=== PATIENT | female | born 1995 | race Caucasian/White ===

== ENCOUNTER 2016-12-18 17:18 | Emergency (ER) | payer OTHER ==
[2016-12-18] MEDS ORDERED: NORMAL SALINE 1,000 ML IV ONE ×2 (17:42→19:05)
[2016-12-18] MEDS ORDERED: ACETAMINOPHEN 500 MG TABLET PO ONE (17:42)
[2016-12-18 17:47] LABS: Urine Appearance Cloudy; Urine Color Yellow
[2016-12-18 17:48] LABS: Urine Bilirubin Negative (NEGATIVE); Urine Blood 150 /ul (NEGATIVE); Urine Ketone 5 mg/dL (NEGATIVE); Urine Protein 30 mg/dL (NEGATIVE); Urine Specific Gravity 1.015 SP.GR. (1.005-1.010); Urine Urobilinogen Normal (NORMAL)
[2016-12-18 17:49] LABS: Urine Bacteria 4+; Urine Nitrite Positive (NEGATIVE); Urine WBC >50 /hpf (0-5)
--- NOTE | 2016-12-18 17:49 | ERNOTE ---
ER Female HPI Date of Service: 12/18/16 Stated Complaint: URINARY PROBLEM Presenting Symptoms: other - Flank pain, foul smelling urine Time Seen by Provider: 12/18/16 17:36 Source: patient, RN notes reviewed Exam Limitations: no limitations Immunizations: IMMUNIZATION HX Immunizations Up to Date Yes History of Influenza Vaccine Yes Hx Pneumococcal Vaccination No Allergies/Adverse Reactions: Allergies codeine [Codeine] Allergy (Mild, Verified 12/18/16 17:33) Sulfa (Sulfonamide Antibiotics) [Sulfa(Sulfonamide Antibiotics)] Allergy (Mild, Verified 12/18/16 17:33) azithromycin [From Zithromax] Allergy (Unknown, Verified 12/18/16 17:33) Home Medications: HOME MEDICATIONS Ciprofloxacin HCl [Cipro] 500 mg PO BID #20 tablet 12/18/16 [Last Taken Unknown] Pain Score #1 Pain Score: 10 - History of Present Illness Narrative: 21 y/o female to ED by private vehicle for left flank pain and foul smelling urine. This began yesterday. She took ibuprofen last evening but has not taken anything today. She reports having a similar illness 3 years ago. Timing: Present: constant Quality: Present: severe Onset Location: Present: left flank Radiation: Present: none Activities at Onset: Present: none Prior Abdominal Problems: Present: similar symptoms Prior Treatment: Absent: recently seen Review of Systems - Review of Systems Constitutional: Present: chills, fatigue, malaise. Absent: recent illness EYE: Present: no symptoms reported ENT: Present: no symptoms reported Respiratory: Absent: shortness of breath, cough Cardiology: Absent: chest pain, syncope Gastrointestinal/Abdominal: Present: eating less. Absent: nausea, vomiting, drinking less Genitourinary: Absent: frequency, dysuria, hematuria Musculoskeletal: Present: back pain. Absent: muscle pain Skin: Absent: rash, lesions Neurological: Absent: headache, dizziness/light-headedness Endocrine: Present: no symptoms reported Hematologic/Lymphatic: Present: no symptoms reported Psych: Present: no symptoms reported - Patient's Past Medical History Patient History - Medical: GERD, Other Patient History - Cardiac/Respiratory: No pertinent hx Patient History - Cancer: No Hx of Cancer Patient History - Surgical Procedures: T & A Patient History - Other: None LMP (Calendar): 12/03/16 - Family History Mother Family History - Medical: Diabetes Type 1 Family History - Cardiac/Respiratory: Myocardial Infarction - Social History Living Situations: other Abuse History: No History of abuse Psych History: Hx of Anxiety, Hx of Depression Smoking Status: Current every day smoker Have you smoked in the past 12 months: Yes Do you dip or chew tobacco: No Patient requests Smoking Cessation Consult: No Initiate information on Smoking Cessation: Yes Alcohol Use: none Drug Use: none - Immunizations Immunizations Up to Date: Yes Hx Pneumococcal Vaccination: No History of Influenza Vaccine: Yes Physical Exam - Physical Exam General Appearance: Present: wd/wn, alert, mild distress Neck: Present: normal inspection, nontender, supple, full range of motion Respiratory: Present: no respiratory distress, normal breath sounds, no accessory muscle use, lungs clear Cardiovascular/Chest: Present: no murmur, normal peripheral pulses, tachycardia Back Exam: Present: no vertebral tenderness, CVA tenderness (L). Absent: CVA tenderness (R) Extremity Exam: Present: normal inspection, normal range of motion Neurological Exam: Present: alert, oriented. Absent: normal mood/affect Skin Exam: Present: warm/dry, pallor ED Progress - Results and Orders Patient's Lab Results:: I have reviewed the patient's lab results. - Vital Signs Patient's Vital Signs:: I have reviewed the patient's vital signs. Vital Signs: Vital Signs 12/18/16 17:23 Temperature 37.6 C H Pulse Rate 129 H Respiratory 20 Rate Blood Pressure 117/50 O2 Sat by Pulse 97 Oximetry - Progress/Reassessment Chief Complaint: Urinary Tract Problems Progress:: Improved Progress Note-Subjective: 12/18/16 18:43 Remains tachycardic in the 110's and has temp of 39 almost an hour after Tylenol was given. Ibuprofen ordered. Asking for food, cheese and crackers given. 12/18/16 20:14 IV Rocephin and 2nd liter of NS given. Resting and appears more comfortable after Morphine 2 mg IVP. Temp down to 37.5. Will d/c home on Cipro. Departure Clinical Impression: Pyelonephritis, acute - Departure Disposition: Home Follow Up Needed Condition: Stable Instructions: Pyelonephritis, Adult, [id number] Additional Instructions: Push fluids Take Tylenol and ibuprofen for pain/fever Return for vomiting or other worsening symptoms Follow up with your doctor to recheck your urine when your antibiotic is finished Referrals: Amparo Morales MD [Primary Care Provider] - Prescriptions: Ciprofloxacin HCl [Cipro] 500 mg PO BID #20 tablet
--- OUTSIDE RECORDS SUMMARY | 2016-12-18 17:55 | XMS REPORT | Continuity of Care Document ---
:1995 Author Organization [facility] ([facility]) Address [address] [place] [address] Phone [phone] Care Team Providers Name Role Phone Unavailable Primary Care Provider Unavailable Source Comments This disclosure is being made pursuant to the Care Everywhere program, applicable federal and state laws, and may not contain all informaitonavailable regarding this patient.[facility] ([facility]) Active Allergies and Adverse Reactions Not on File Current Medications Not on file Active Problems Not on file Social History Tobacco Use Types Packs/Day Years Used Date Never Assessed Last Filed Vital Signs Vital Sign Reading Time Taken Blood Pressure 127/59 01/27/2016 9:56 PM CDT Pulse 73 01/27/2016 9:56 PM CDT Temperature 37.2 C (99 F) 01/27/2016 9:56 PM CDT Respiratory Rate 18 01/27/2016 9:56 PM CDT Height - - Weight - - Body Mass Index - - Oxygen Saturation 97% 01/27/2016 9:56 PM CDT Plan of Care Health Maintenance Due Date Last Done Comments Hepatitis B Vaccine (1 of 3 - Primary Series) 1993 HPV Vaccine (1 of 3 - Female/Unknown 3 Dose Series) 2004 Tdap Vaccine 2004 Cervical Cancer Screening 12/09/2011 Lipid Disorder Screening 12/09/2011 MMR Vaccine 12/09/2011 Td Vaccine 12/09/2011 Varicella Vaccine (1 of 2 - Adult - No Evidence of 12/09/2011 Immunity) Influenza Vaccine: Seasonal (#1) 04/04/2016 Results from Last 3 Months Not on file
[2016-12-18] MEDS ORDERED: IBUPROFEN 600 MG TABLET PO ONE (18:43)
[2016-12-18] MEDS ORDERED: IBUPROFEN 600 MG TABLET ONE (18:44)
[2016-12-18] MEDS ORDERED: MORPHINE SULFATE 2 MG/ML DISP.SYRIN IV ONE (19:05)
[2016-12-18] MEDS ORDERED: ONDANSETRON HCL/PF 2 MG/ML VIAL IV ONE (19:05)
[2016-12-18] MEDS ORDERED: ONDANSETRON HCL/PF 2 MG/ML VIAL ONE (19:08)
[2016-12-18] MEDS ORDERED: MORPHINE SULFATE 2 MG/ML DISP.SYRIN ONE (19:08)
[2016-12-18 20:18] VITALS: BP 115/68
== END 2016-12-18 20:27 | disposition home or self-care (01) ==
LOC: ER 17:18
DX: N10 Acute pyelonephritis (principal); F17.210 Nicotine dependence, cigarettes, uncomplicated

== ENCOUNTER 2016-12-19 17:27 | Emergency (ER) | payer OTHER ==
--- OUTSIDE RECORDS SUMMARY | 2016-12-19 20:02 | XMS REPORT | Continuity of Care Document ---
:1995 Author Organization [facility] ([facility]) Address [address] [place] [address] Phone [phone] Care Team Providers Name Role Phone Unavailable Primary Care Provider Unavailable Source Comments This disclosure is being made pursuant to the Care Everywhere program, applicable federal and state laws, and may not contain all informaitonavailable regarding this patient.[facility] ([facility]) Active Allergies and Adverse Reactions Not on [...]
[2016-12-19 20:15] LABS: Urine Bilirubin Negative (NEGATIVE); Urine Ketone Negative (NEGATIVE); Urine Nitrite Negative (NEGATIVE); Urine Protein Negative (NEGATIVE); Urine Urobilinogen Normal (NORMAL)
[2016-12-19] MEDS ORDERED: ACETAMINOPHEN 500 MG TABLET PO ONE (20:23)
[2016-12-19 20:28] LABS: Urine Appearance Clear; Urine Bacteria TRACE; Urine Blood 10 /ul (NEGATIVE); Urine Color Yellow; Urine RBC 0-5 /hpf (0-5); Urine WBC 0-5 /hpf (0-5)
[2016-12-19 20:53] LABS: Hematocrit 31.4 % (37.0-47.0); Hemoglobin 10.4 gm/dL (12.5-16.0); Mean Corpuscular Hemoglobin 28.5 pg (27-31); Mean Corpuscular Hgb Conc 33.1 g/dl (32-36); Mean Platelet Volume 9.4 fl (6.0-9.5); Neutrophil # 8.7 K/mm3 (1.3-6.0); Neutrophil % 76.1 % (42-75.0); Platelet Count 224 K/mm3 (150-450); Red Blood Count 3.65 M/mm3 (4.2-5.4); Red Cell Distribution Width 13.3 % (11.5-14.0); White Blood Count 11.5 K/mm3 (4.0-10.5)
[2016-12-19 21:01] LABS: Anion Gap 10.5 mmol/L (6.8-13.8); BUN/Creatinine Ratio 3.8 (9.0-21.6); Calcium * 8.3 mg/dL (7.9-10.9); Carbon Dioxide 28.1 mmol/L (24-32.6); Estimated Creat Clear 130.6; Potassium 3.6 mmol/L (3.4-4.6)
--- NOTE | 2016-12-19 21:52 | ERNOTE ---
ER Female HPI Date of Service: 12/19/16 Stated Complaint: KIDNEY PAIN Time Seen by Provider: 12/19/16 19:56 Source: patient Immunizations: IMMUNIZATION HX Immunizations Up to Date Yes History of Influenza Vaccine Yes Hx Pneumococcal Vaccination No Allergies/Adverse Reactions: Allergies codeine [Codeine] Allergy (Mild, Verified 12/19/16 17:46) Sulfa (Sulfonamide Antibiotics) [Sulfa(Sulfonamide Antibiotics)] Allergy (Mild, Verified 12/19/16 17:46) azithromycin [From Zithromax] Allergy (Unknown, Verified 12/19/16 17:46) Home Medications: HOME MEDICATIONS Ciprofloxacin HCl [Cipro] 500 mg PO BID #20 tablet 12/18/16 [Last Taken Unknown] Naproxen [Naprosyn] 500 mg PO BID PRN #20 tablet 12/19/16 [Last Taken Unknown] - History of Present Illness Narrative: 2 day history of left CVA area pain that has been severe. OTC medications have not helped the pain. Movement aggravates the pain. Denies any fevers, chills, dysuria, or urinary frequency. There is a history of UTIs. No previous history of renal stones, but has had pyelonephritis. Seen yesterday for similar pain and was prescribed Cipro. Timing: Present: constant Quality: Present: severe Onset Location: Present: left flank Radiation: Present: none Activities at Onset: Present: none Modifying Factors - (Improves): Present: other - being still Modifying Factors - (Worsens): Present: movement Review of Systems - Review of Systems Constitutional: Present: no symptoms reported EYE: Present: no symptoms reported ENT: Present: no symptoms reported Respiratory: Present: no symptoms reported Cardiology: Present: no symptoms reported Gastrointestinal/Abdominal: Present: no symptoms reported Genitourinary: Present: See HPI Musculoskeletal: Present: no symptoms reported Skin: Present: no symptoms reported Neurological: Present: no symptoms reported Endocrine: Present: no symptoms reported Hematologic/Lymphatic: Present: no symptoms reported Psych: Present: no symptoms reported - Patient's Past Medical History Patient History - Medical: GERD, Other Patient History - Cardiac/Respiratory: No pertinent hx Patient History - Cancer: No Hx of Cancer Patient History - Surgical Procedures: T & A Patient History - Other: None LMP (Calendar): 12/03/16 - Family History Mother Family History - Medical: Diabetes Type 1 Family History - Cardiac/Respiratory: Myocardial Infarction - Social History Living Situations: home Abuse History: No History of abuse Psych History: Hx of Anxiety, Hx of Depression Alcohol Use: none Drug Use: none - Immunizations Immunizations Up to Date: Yes Hx Pneumococcal Vaccination: No History of Influenza Vaccine: Yes Physical Exam - Physical Exam General Appearance: Present: mild distress, moderate distress Eye Exam: Normal inspection: bilateral, PERRL: bilateral Ears, Nose, Throat: Present: normal ENT inspection Neck: Present: normal inspection Respiratory: Present: no respiratory distress Cardiovascular/Chest: Present: regular rate, rhythm Gastrointestinal/Abdominal: Present: nontender, nondistended Back Exam: Present: normal inspection, CVA tenderness (L) Extremity Exam: Present: normal inspection Neurological Exam: Present: alert, oriented, 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 - Vital Signs Patient's Vital Signs:: I have reviewed the patient's vital signs. Vital Signs: Vital Signs 12/19/16 12/19/16 12/19/16 17:41 18:53 19:38 Temperature 37.3 C 38.2 C H 38.4 C H Pulse Rate 122 H 110 H 110 H Respiratory 12 18 18 Rate Blood Pressure 138/83 108/63 133/84 O2 Sat by Pulse 99 98 99 Oximetry - Progress/Reassessment Chief Complaint: Genitourinary Problem Progress:: Improved Departure Clinical Impression: Renal colic on left side - Departure Disposition: Home self-care Condition: Good Instructions: Renal Colic, [id number] Print Language: Lithuanian Additional Instructions: Continue taking the antibiotics that you were prescribed yesterday. You can also take Tylenol for pain. Follow up with your physician as needed. Referrals: Amparo Morales MD [Primary Care Provider] - Prescriptions: Naproxen [Naprosyn] 500 mg PO BID PRN #20 tablet PRN Reason: Pain
[2016-12-19 22:35] VITALS: BP 110/72
== END 2016-12-19 22:26 | disposition home or self-care (01) ==
LOC: ER 17:27
DX: N23 Unspecified renal colic (principal)

== ENCOUNTER 2017-05-03 17:44 | Emergency (ER) | payer OTHER ==
[2017-05-03] MEDS ORDERED: DIPHTH,PERTUSS(ACELL),TET VAC 0.5 ML VIAL IM ONE ×2 (18:02→18:30)
--- NOTE | 2017-05-03 18:10 | ERNOTE ---
Lower Extremity HPI - Narrative Date of Service: 05/03/17 - General Lower Extremities Pain: foot: left Time Seen by Provider: 05/03/17 17:57 Source: patient Exam Limitations: no limitations - Immun/Allergies/Home Medications Immunizations: IMMUNIZATION HX Immunizations Up to Date Yes History of Influenza Vaccine Yes Hx Pneumococcal Vaccination No Allergies/Adverse Reactions: Allergies Allergy/AdvReac Type Severity Reaction Status Date / Time codeine [Codeine] Allergy Mild Verified 12/19/16 17:46 Sulfa (Sulfonamide Allergy Mild Verified 12/19/16 17:46 Antibiotics) [Sulfa(Sulfonamide Antibiotics)] azithromycin [From Zithromax] Allergy Unknown Verified 12/19/16 17:46 Home Medications: HOME MEDICATIONS NK [No Home Medication] 05/03/17 [Last Taken Unknown] - History of Present Illness Narrative: Pt. comes in with c/o L foot laceration and pain after she dropped a picture frame on her foot just prior to arrival. Pt. denies any SOB, CP, NVD, numbness , tingling, alleviating factors, but states that ambulating exacerbates the pain and applying pressure alleviated the pain. Review of Systems - Review of Systems Constitutional: Present: no symptoms reported. Absent: recent illness, fever, chills, weakness, fatigue EYE: Present: no symptoms reported ENT: Present: no symptoms reported Respiratory: Present: no symptoms reported. Absent: shortness of breath, cough , wheezing Cardiology: Present: no symptoms reported. Absent: chest pain, palpitations, edema Gastrointestinal/Abdominal: Present: no symptoms reported Genitourinary: Present: no symptoms reported Musculoskeletal: Present: joint pain - L foot Skin: Present: other - laceration L dorsal foot Neurological: Present: no symptoms reported. Absent: headache, dizziness/light- headedness, numbness, tingling Endocrine: Present: no symptoms reported Hematologic/Lymphatic: Present: no symptoms reported All Other Systems: All systems neg except as marked - Patient's Past Medical History Patient History - Medical: GERD Patient History - Cardiac/Respiratory: No pertinent hx Patient History - Cancer: No Hx of Cancer Patient History - Surgical Procedures: T & A Patient History - Other: None LMP (Calendar): 12/03/16 - Family History Mother Family History - Medical: Diabetes Type 1 Family History - Cardiac/Respiratory: Myocardial Infarction - Social History Living Situations: home Abuse History: No History of abuse Psych History: Hx of Anxiety, Hx of Depression Smoking Status: Current every day smoker Have you smoked in the past 12 months: Yes Do you dip or chew tobacco: No Alcohol Use: none Drug Use: none - Immunizations Immunizations Up to Date: Yes Hx Pneumococcal Vaccination: No History of Influenza Vaccine: Yes Physical Exam - Physical Exam General Appearance: Present: wd/wn, alert, no apparent distress Head Exam: Present: normal inspection, no evidence of injury Eye Exam: Normal inspection: bilateral Respiratory: Present: no respiratory distress, normal breath sounds, no accessory muscle use, chest nontender, lungs clear Cardiovascular/Chest: Present: regular rate, rhythm, no murmur, normal peripheral pulses Extremity Exam: Present: other - L dorsal foot puncture wound partial thickness 0.3cm x 0.1 not gaping no closure needed Neurological Exam: Present: alert, oriented, normal mood/affect, no motor/ sensory deficits Skin Exam: Present: normal color, warm/dry. Absent: pallor, skin rash ED Progress - Vital Signs Patient's Vital Signs:: I have reviewed the patient's vital signs. Vital Signs: Vital Signs 05/03/17 17:49 Temperature 36.9 C Pulse Rate 112 H Respiratory 16 Rate Blood Pressure 119/75 O2 Sat by Pulse 97 Oximetry - X-Ray X-Ray #1 X-Ray: foot Interpretation: Interp. by me X-ray Comments: no obvious acute fracture - Progress/Reassessment Chief Complaint: Lower Extremity Pain/ Injury Departure Clinical Impression: Puncture wound of foot Qualifiers: Encounter type: initial encounter Laterality: left Qualified Code(s): S91.332A - Puncture wound without foreign body, left foot, initial encounter - Departure Disposition: Home self-care Condition: Good Instructions: Puncture Wound, [id number] Additional Instructions: Please follow up with primary provider in 2-3 days. Referrals: Amparo Morales MD [Primary Care Provider] -
[2017-05-03 18:51] VITALS: BP 115/69
== END 2017-05-03 18:45 | disposition home or self-care (01) ==
LOC: ER 17:44
DX: S91.332A Puncture wound without foreign body, left foot, initial encounter (principal); F17.200 Nicotine dependence, unspecified, uncomplicated; W20.8XXA Other cause of strike by thrown, projected or falling object, initial encounter; Z23 Encounter for immunization

== ENCOUNTER 2019-04-08 10:16 | Inpatient (IN) ==
[2019-04-08] MEDS ORDERED: OXYTOCIN/DEXTROSE 5%-WATER 30 UNITS/500 ML BAG IV ONE (13:57)
[2019-04-08] MEDS ORDERED: RINGER'S SOLUTION,LACTATED 1,000 ML IV ONE (13:57)
[2019-04-08] MEDS: DEXTROSE 5%-LACTATED RINGERS 1,000 ML IV PRN ×2 (14:14→21:01)
[2019-04-08 14:36] LABS: Cocaine Ur Negative (NEGATIVE); Urine Barbiturate Negative (NEGATIVE); Urine Benzodiazepines Negative (NEGATIVE); Urine Opiates Negative (NEGATIVE); Urine PCP Negative (NEGATIVE); Urine THC Negative (NEGATIVE)
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
--- NOTE | 2019-04-08 18:38 | PN ---
Progess Note - Interim Date: 04/08/19 Time: 18:36 Narrative: 04/08/19 18:36 Patient rating her contractions as moderate Vital signs stable. Pitocin at 2 mu/min. FHT: 150 baseline, periods of minimal variability with periods of moderate variability, good accelerations contractions q 2-3 min Cervix: 2 cm with Glasgow bulb still intact, moved more anterior Impression: Intrauterine at 38 4/7 weeks induction of labor for IUGR, two-vessel cord Plan: Continue present plan
[2019-04-08] MEDS ORDERED: BUPIVACAINE HCL/0.9 % NACL/PF 250 ML EP PRN ×2 (19:00→19:32)
[2019-04-08] MEDS ORDERED: ONDANSETRON HCL/PF 2 MG/ML VIAL IV PRN ×2 (19:00→19:32)
[2019-04-08] MEDS ORDERED: NALOXONE HCL 1 MG/1 ML SYRG IV PRN ×2 (19:00→19:32)
[2019-04-08] MEDS ORDERED: fentaNYL CITRATE/PF 50 MCG/ML AMPUL IT SCH (19:00)
[2019-04-08] MEDS ORDERED: BUPIVACAINE HCL/PF 30 ML VIAL EP SCH (19:45)
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
--- NOTE | 2019-04-08 20:09 | ANES ---
Post Anesthesia Assessment - Vital Signs Vitals: Last Vital Signs Temp 36.7 C 04/08/19 20:03 Pulse 84 04/08/19 20:03 Resp 16 04/08/19 20:03 BP 127/78 04/08/19 20:03 Pulse Ox 99 04/08/19 20:03 Airway Patency: Normal - Mental Status Level Of Consciousness: Awake - N/V Assessment Nausea/Vomiting Presence: None Dehydration:: No
--- NOTE | 2019-04-08 20:10 | ANES ---
Anesthesia Procedure Note Procedure Note: ANESTHESIA PROCEDURE NOTE Date of Procedure: 05/09/2019. Time of procedure: 1954. Performed by: Víctor Milligan CRNA [employer] Targeting Supervisor: None. Preprocedure diagnosis: Active labor. Post procedure diagnosis: Same. Procedure: Insertion of labor epidural. Indications: The patient is a 23-year-old female in active labor requesting labor epidural for pain management. Findings: See below. Details of the procedure: The patient was placed in a sitting position. DuraPrep as well as Betadine swabs X3 was applied to the patient's back. Patient was then draped in a sterile fashion. Lidocaine 1% was infiltrated to the skin and subcutaneous tissues at the level of the L3-4 interspace. The epidural space was identified using a 18-gauge Tuohy needle with [id number]-kt-vupinnizgu technique. Epidural catheter was inserted to a depth of 11 centimeters at skin. Negative test dose was elicited using 3 mL of 1.5% preservative-free lidocaine plus epinephrine 1 200,000. The epidural catheter was then taped and secured in place. A loading dose of 8 mL of 0.25% preservative-free bupivacaine was administered to the epidural catheter after negative aspiration for blood and CSF. EBL: Minimal. Fluids: N/A. Specimen: N/A. Post procedure condition: The patient tolerated the procedure well. No complications were noted. Thank you for this consultation. Víctor Milligan CRNA
--- NOTE | 2019-04-09 03:34 | PN ---
Progess Note - Interim Date: 04/09/19 Time: 03:31 Narrative: 04/09/19 03:31 Patient comfortable with epidural Vital signs stable. Pitocin was at 4 mu/min - turned off due to decelerations. FHT: 150 baseline, moderate variability with decelerations down to the 60s lasting approximately 1 minute contractions not picking up well Cervix: 6-7/70 5/-2, AROM-clear, FSE and IUPC placed Impression: Intrauterine at 38 5/7 weeks induction of labor for IUGR Plan: We will have OR crew available for possible section if tracing does not improve in the next few minutes
[2019-04-09] MEDS: DEXTROSE 5%-LACTATED RINGERS 1,000 ML IV PRN (05:46)
[2019-04-09] MEDS ORDERED: SENNOSIDES 8.6 MG TABLET PO PRN (06:51)
[2019-04-09] MEDS ORDERED: BENZOCAINE/MENTHOL 81 SPRAY CAN TP PRN (06:51)
[2019-04-09] MEDS ORDERED: BISACODYL 10 MG SUPP.RECT RC PRN (06:51)
[2019-04-09] MEDS ORDERED: GLYCERIN/WITCH HAZEL LEAF 40 APPL BOX TP PRN (06:51)
[2019-04-09] MEDS ORDERED: HYDROCORTISONE 30 APPL TUBE TP PRN (06:51)
[2019-04-09] MEDS ORDERED: OXYTOCIN/DEXTROSE 5%-WATER 30 UNITS/500 ML BAG IV ONE (06:51)
[2019-04-09] MEDS ORDERED: IBUPROFEN 800 MG TABLET PO PRN (06:51)
--- NOTE | 2019-04-09 06:54 | OR ---
Operative Report - Dictated Report Narrative: Spontaneous vaginal delivery of vigorously crying viable female at 0628 on 04/09/2019 with Apgars 9 and 9, weighing 2311 g in EDSON position with nuchal cord x2. Cord clamping delayed approximately 1 minute Placenta delivered complete, intact, with two vessel cord Estimated blood loss: Less than 50 ml Anesthesia: Epidural Lacerations: None History for MU History for Definition: * The number of deliveries resulting in a live the patient experienced prior to current hospitalization * The previous delivery of live twins or any live multiple gestation is considered one live event. *If primagravida or nulliparous is documented select zero for the number of previous live births. Live Events: Live Events: 2
[2019-04-09] MEDS: FERROUS SULFATE 325 MG TABLET PO SCH (08:34)
[2019-04-09] MEDS: DOCUSATE SODIUM 100 MG CAPSULE PO SCH ×3 (08:34→22:11)
[2019-04-09] MEDS: PRENATAL VITS96/IRON FUM/FOLIC 1 TAB TABLET PO SCH (08:34)
[2019-04-09] MEDS ORDERED: ESCITALOPRAM OXALATE 10 MG TAB PO SCH (09:00)
[2019-04-09] MEDS: oxyCODONE HCL/ACETAMINOPHEN 1 TAB TABLET PO PRN ×4 (09:28→22:35)
[2019-04-09] MEDS: IBUPROFEN 800 MG TABLET PO PRN (17:23)
[2019-04-10] MEDS: oxyCODONE HCL/ACETAMINOPHEN 1 TAB TABLET PO PRN ×3 (02:22→21:58)
[2019-04-10] MEDS: IBUPROFEN 800 MG TABLET PO PRN ×2 (02:22→19:36)
[2019-04-10] MEDS: FERROUS SULFATE 325 MG TABLET PO SCH ×2 (07:28→08:49)
[2019-04-10] MEDS: PRENATAL VITS96/IRON FUM/FOLIC 1 TAB TABLET PO SCH ×2 (07:28→08:49)
[2019-04-10] MEDS: DOCUSATE SODIUM 100 MG CAPSULE PO SCH ×3 (07:28→20:51)
--- NOTE | 2019-04-10 13:42 | PN ---
Subjective - Date and Time Seen Date: 04/10/19 Time: 13:42 Objective - Vitals Vitals: Last Vital Signs Temp 36.1 C 04/10/19 13:07 Pulse 79 04/10/19 13:07 Resp 14 04/10/19 13:07 BP 100/59 04/10/19 13:07 Pulse Ox 97 04/10/19 13:07 Patient denies complaints. Lochia wnl abdomen - soft, nontender Uterus -firm, at umbilicus - 1 no calf tenderness Impression: day #1 - s/p spontaneous vaginal delivery. Plan: Continue routine care Cauti Physician Documentation - Urinary Catheter Management Urethral ([place]) Date of Insertion: 04/08/19 Time of Insertion: 20:40 Date of Removal: 04/09/19 Time of Removal: 06:00 Assessment/Plan - Problems/Diagnosis (1) IUGR (intrauterine growth restriction) affecting care of mother Problem: Acute Qualifiers: Fetus number: single or unspecified fetus Trimester: third trimester Qualified Code(s): O36.5930 - Maternal care for other known or suspected poor growth, third trimester, not applicable or unspecified (2) Single umbilical artery affecting management of mother in garcia , antepartum Problem: Acute (3) Tobacco abuse Problem: Chronic (4) Anxiety and depression Problem: Chronic (5) Anemia Problem: Acute Qualifiers: Anemia type: iron deficiency Iron deficiency anemia type: inadequate dietary iron intake Qualified Code(s): D50.8 - Other iron deficiency anemias
[2019-04-11] MEDS: IBUPROFEN 800 MG TABLET PO PRN (03:14)
[2019-04-11] MEDS: oxyCODONE HCL/ACETAMINOPHEN 1 TAB TABLET PO PRN (03:15)
[2019-04-11 07:49] VITALS: BP 104/66
[2019-04-11] MEDS: FERROUS SULFATE 325 MG TABLET PO SCH (08:32)
[2019-04-11] MEDS: DOCUSATE SODIUM 100 MG CAPSULE PO SCH (08:32)
[2019-04-11] MEDS: PRENATAL VITS96/IRON FUM/FOLIC 1 TAB TABLET PO SCH (08:32)
--- NOTE | 2019-04-11 13:00 | PN ---
Subjective - Date and Time Seen Date: 04/11/19 Time: 12:59 Objective - Vitals Vitals: Last Vital Signs Temp 36.9 C 04/11/19 07:30 Pulse 90 04/11/19 07:30 Resp 18 04/11/19 07:30 BP 104/66 04/11/19 07:30 Pulse Ox 98 04/11/19 07:30 Patient denies complaints. Breast-feeding Lochia wnl abdomen - soft, nontender Uterus -firm, at umbilicus - 2 no calf tenderness Impression: day #2 - s/p spontaneous vaginal delivery. Bipolar disorder-stable Plan: Routine discharge instructions. Follow-up with primary care physician or psychiatrist for management of bipolar disorder. Cauti Physician Documentation - Urinary Catheter Management Urethral ([place]) Date of Insertion: 04/08/19 Time of Insertion: 20:40 Date of Removal: 04/09/19 Time of Removal: 06:00 Assessment/Plan - Problems/Diagnosis (1) IUGR (intrauterine growth restriction) affecting care of mother Problem: Acute Qualifiers: Fetus number: single or unspecified fetus Trimester: third trimester Qualified Code(s): O36.5930 - Maternal care for other known or suspected poor growth, third trimester, not applicable or unspecified (2) Single umbilical artery affecting management of mother in garcia , antepartum Problem: Acute (3) Tobacco abuse Problem: Chronic (4) Anxiety and depression Problem: Chronic (5) Anemia Problem: Acute Qualifiers: Anemia type: iron deficiency Iron deficiency anemia type: inadequate dietary iron intake Qualified Code(s): D50.8 - Other iron deficiency anemias
== END 2019-04-11 14:10 | disposition home or self-care (01) | DRG 807 ==
LOC: OB 10:16 → MS 04-09 20:30
PROVIDERS: ADMIT Obstetrics & Gynecology; ATTEND Obstetrics & Gynecology
CPT/HCPCS: 59025; 80307; 88307